=== PATIENT | female | born 1960 | race Two or more races ===

== ENCOUNTER 2021-12-02 09:16 | Emergency (ER) | payer OTHER ==
[~2021-12-02] VITALS: Ht 162.6 cm; Wt 80.6 kg
[2021-12-02 09:37] VITALS: BP 136/80
[2021-12-02] MEDS ORDERED: PROM1SOL4 PO (10:32)
[2021-12-02] MEDS ORDERED: AMOX-277 PO (10:32)
== END 2021-12-02 10:51 | disposition home or self-care (01) ==
LOC: ER 09:16
DX: J20.9 Acute bronchitis, unspecified (principal); H66.92 Otitis media, unspecified, left ear
CPT/HCPCS: 71046